=== PATIENT | male | born 1955 | race Hispanic/Latino ===

== ENCOUNTER 2020-12-17 08:44 | Observation (INO) | payer OTHER ==
[~2020-12-17] VITALS: Ht 165.1 cm; Wt 117.9 kg
[2020-12-17] MEDS ORDERED: MORPHINE 4 MG SYG IVP ONE (09:00)
[2020-12-17] MEDS ORDERED: ONDANSETRON 4MG INJ IVP ONE (09:00)
[2020-12-17] MEDS ORDERED: PANTOPRAZOLE 40 MG/VIAL IVP ONE (09:00)
[2020-12-17 09:07] LABS: BASOPHILS % (AUTO) 0.4 % (0.0-5.0); EOSINOPHILS % (AUTO) 0.8 % (0.0-8.0); HEMATOCRIT 45.2 % (42-54); LYMPHOCYTES % (AUTO) 25.4 % (21.0-51.0); MEAN CORPUSCULAR HEMOGLOBIN 28.2 pg (27.0-33.0); MEAN CORPUSCULAR HGB CONC 32.7 g/dL (32.0-36.0); MEAN CORPUSCULAR VOLUME 86.3 fL (79-99); NEUTROPHILS % (AUTO) 66.7 % (40.0-77.0); PLATELET COUNT (AUTO) 243 K/uL (130-400); RED BLOOD CELL COUNT(AUTO) 5.24 MIL/uL (4.50-6.20); RED CELL DISTRIBUTION WIDTH 13.2 % (11.0-15.5); WHITE BLOOD COUNT (AUTO) 14.4 K/uL (4.8-10.8)
[2020-12-17 09:08] LABS: APPEARANCE,URINE Clear (CLEAR); BILIRUBIN,URINE Negative (NEGATIVE); COLOR,URINE Yellow (YELLOW); GLUCOSE, URINE (UA) Negative (NEGATIVE); KETONES,URINE Negative (NEGATIVE); LEUKOCYTE ESTERASE ,URINE Negative (NEGATIVE); NITRATE,URINE Negative (NEGATIVE); OCCULT BLOOD,URINE Negative (NEGATIVE); PROTEIN,URINE Trace mg/dL (NEGATIVE); UROBILINOGEN,URINE 0.2 mg/dL (0.2-1.0)
[2020-12-17 09:15] LABS: CREATININE 0.9 mg/dL (0.5-1.5); POTASSIUM 4.1 mmol/L (3.5-5.1)
[2020-12-17 09:16] LABS: INR 1.03 (0.85-1.15); PROTHROMBIN TIME 11.2 SEC (9.6-11.6)
[2020-12-17 09:18] LABS: PARTIAL THROMBOPLASTIN TIME 28.4 SEC (26.3-35.5)
[2020-12-17 09:29] LABS: ALBUMIN 3.8 g/dL (3.5-5.0); BILIRUBIN,TOTAL 0.3 mg/dL (0.2-1.0); TOTAL PROTEIN, SERUM 7.4 g/dL (6.0-8.3)
[2020-12-17 10:04] LABS: BACTERIA,URINE Rare /HPF (None Seen); RBC,URINE None Seen /HPF (0-1); SQUAMOUS EPITHELIAL CELL,UR Rare /HPF (0-2); WBC,URINE None Seen /HPF (0-1)
[2020-12-17] MEDS ORDERED: ONDANSETRON 4MG INJ IVP PRN (12:00)
[2020-12-17] MEDS ORDERED: ACETAMINOPHEN 325 MG SUPPOSITORY RC PRN (12:00)
[2020-12-17] MEDS ORDERED: ACETAMINOPHEN 325 MG TAB PO PRN (12:00)
[2020-12-17] MEDS: LACTATED RINGERS 1000ML 1,000 ML IV SCH (12:20)
[2020-12-17] MEDS: SUCRALFATE 1 GM TABLET PO SCH ×2 (12:20→18:34)
[2020-12-17] MEDS ORDERED: ATOR10TA69 PO (12:27)
[2020-12-17] MEDS ORDERED: ALLO100T PO (12:27)
[2020-12-17] MEDS ORDERED: FURO20TA4 PO (12:27)
[2020-12-17] MEDS ORDERED: LOSA100T58 PO (12:27)
[2020-12-17] MEDS: METRONIDAZOLE 500 MG TABLET PO SCH ×2 (15:20→21:36)
[2020-12-17] MEDS: AMOX/CLAV 875/125MG TAB PO SCH (15:20)
[2020-12-17 18:50] LABS: HEMATOCRIT 42.3 % (42-54)
[2020-12-17] MEDS: ATORVASTATIN 10 MG TABLET PO SCH (20:50)
[2020-12-17] MEDS: PANTOPRAZOLE 40 MG/VIAL IVP SCH (20:50)
[2020-12-17 22:00] VITALS: BP 165/88
[2020-12-18] VITALS (7 sets, daily range): BP systolic 115–165; BP diastolic 74–86
[2020-12-18] MEDS: SUCRALFATE 1 GM TABLET PO SCH ×4 (00:06→18:15)
[2020-12-18] MEDS: AMOX/CLAV 875/125MG TAB PO SCH ×2 (01:34→13:15)
[2020-12-18 04:58] LABS: HEMATOCRIT 41.6 % (42-54); MEAN CORPUSCULAR HEMOGLOBIN 28.1 pg (27.0-33.0); MEAN CORPUSCULAR VOLUME 87.8 fL (79-99); RED BLOOD CELL COUNT(AUTO) 4.74 MIL/uL (4.50-6.20); RED CELL DISTRIBUTION WIDTH 13.2 % (11.0-15.5); WHITE BLOOD COUNT (AUTO) 9.7 K/uL (4.8-10.8)
[2020-12-18 05:10] LABS: CREATININE 0.9 mg/dL (0.5-1.5); POTASSIUM 3.7 mmol/L (3.5-5.1)
[2020-12-18] MEDS: METRONIDAZOLE 500 MG TABLET PO SCH ×3 (05:30→20:57)
[2020-12-18] MEDS: LACTATED RINGERS 1000ML 1,000 ML IV SCH (08:00)
[2020-12-18] MEDS: PANTOPRAZOLE 40 MG/VIAL IVP SCH ×2 (08:50→20:57)
[2020-12-18] MEDS ORDERED: ALLOPURINOL 100 MG TABLET PO SCH (09:00)
[2020-12-18] MEDS ORDERED: LOSARTAN 100 MG TABLET PO SCH (09:00)
[2020-12-18] MEDS: ATORVASTATIN 10 MG TABLET PO SCH (20:59)
[2020-12-19] VITALS (18 sets, daily range): BP systolic 101–167; BP diastolic 50–102
[2020-12-19] MEDS: SUCRALFATE 1 GM TABLET PO SCH ×3 (00:29→05:41)
[2020-12-19] MEDS: AMOX/CLAV 875/125MG TAB PO SCH ×2 (00:29→00:35)
[2020-12-19] MEDS: LACTATED RINGERS 1000ML 1,000 ML IV SCH (00:30)
[2020-12-19 04:20] LABS: MEAN CORPUSCULAR HEMOGLOBIN 28.5 pg (27.0-33.0); MEAN CORPUSCULAR HGB CONC 32.6 g/dL (32.0-36.0); MEAN CORPUSCULAR VOLUME 87.3 fL (79-99); RED BLOOD CELL COUNT(AUTO) 4.81 MIL/uL (4.50-6.20); RED CELL DISTRIBUTION WIDTH 13.3 % (11.0-15.5); WHITE BLOOD COUNT (AUTO) 9.8 K/uL (4.8-10.8)
[2020-12-19 04:46] LABS: CREATININE 0.9 mg/dL (0.5-1.5); POTASSIUM 3.6 mmol/L (3.5-5.1)
[2020-12-19] MEDS: METRONIDAZOLE 500 MG TABLET PO SCH (05:30)
[2020-12-19] MEDS: PANTOPRAZOLE 40 MG/VIAL IVP SCH (09:26)
[2020-12-19] MEDS ORDERED: PANT40TA54 PO (11:13)
[2020-12-19] MEDS ORDERED: PROPOFOL 10 MG/ML 20ML VIAL IV ONE ×2 (11:32)
[2020-12-19] MEDS ORDERED: LIDOCAINE PF 100MG/5ML (2%) SYRINGE 5ML ONE (11:33)
== END 2020-12-19 16:00 | disposition home or self-care (01) ==
LOC: EDH 08:44 → EDHIP 11:32 → 3CH 21:48
PROVIDERS: ADMIT Internal Medicine; ATTEND Internal Medicine
DX: R10.13 Epigastric pain (principal); K92.0 Hematemesis; A04.8 Other specified bacterial intestinal infections; K22.89 Other specified disease of esophagus; K31.89 Other diseases of stomach and duodenum; D62 Acute posthemorrhagic anemia; I10 Essential (primary) hypertension; M10.9 Gout, unspecified; N28.1 Cyst of kidney, acquired; E78.00 Pure hypercholesterolemia, unspecified; E78.5 Hyperlipidemia, unspecified; E66.9 Obesity, unspecified; Z68.41 Body mass index [BMI] 40.0-44.9, adult; Z79.899 Other long term (current) drug therapy
CPT/HCPCS: 36415 ×3; 43239; 71045; 74176; 80048 ×2; 80053; 81001; 82150; 82270; 82550 ×2; 83690; 84484; 85014; 85018; 85025; 85027 ×2; 85610; 85730; 86677; 88305; 88342; 93005; 96361 ×2; 96374; 96375; 96376 ×3; 99285; A4215; A4222; A4223; A4606; A4620; C9113 ×5; G0378 ×50; J2001; J2270; J2405; J2704 ×2; J7120 ×2